=== PATIENT | male | born 1980 | race Caucasian/White ===

== ENCOUNTER 2019-05-14 00:14 | Emergency (ER) | payer MEDICAID ==
[~2019-05-14] VITALS: Ht 170.2 cm; Wt 72.0 kg
[2019-05-14] MEDS ORDERED: KETOROLAC 30MG/ML VIAL IV ONE (02:15)
[2019-05-14] MEDS ORDERED: SODIUM CHLORIDE 0.9% 1,000 ML IV ONE (02:15)
[2019-05-14 05:21] VITALS: BP 117/72
== END 2019-05-14 06:15 | disposition home or self-care (01) ==
LOC: ER 00:14
DX: S00.532A Contusion of oral cavity, initial encounter (principal); F10.129 Alcohol abuse with intoxication, unspecified; Y08.89XA Assault by other specified means, initial encounter; Y93.89 Activity, other specified; Y92.89 Other specified places as the place of occurrence of the external cause; Y99.8 Other external cause status; Y90.8 Blood alcohol level of 240 mg/100 ml or more
CPT/HCPCS: 36415; 71045; 80320; 96374; 99284; J1885; J7030; Z7610; G0480

== ENCOUNTER 2019-05-16 01:10 | Emergency (ER) | payer MEDICAID ==
[~2019-05-16] VITALS: Ht 165.1 cm; Wt 71.0 kg
[2019-05-16] MEDS ORDERED: SODIUM CHLORIDE 0.9% 1,000 ML IV ONE (04:42)
[2019-05-16 05:49] LABS: BASOPHILS % 1.4 % (0.0-2.0); EOSINOPHILS % 1.7 % (0.0-5.0); HEMOGLOBIN. 13.5 g/dL (14.0-18.0); LYMPHOCYTES % 46.1 % (20.0-50.0); MEAN CORPUSCULAR HEMOGLOBIN 34.1 pg (28.0-32.0); MEAN CORPUSCULAR VOLUME 101.2 fL (80.0-94.0); MEAN PLATELET VOLUME 8.8 fl (7.4-10.4); MONOCYTES % 6.5 % (2.0-8.0); NEUTROPHILS % 44.3 % (40.0-76.0); PLATELET 126 x1000/uL (130-400); RED BLOOD CELL COUNT 3.95 mill/uL (4.7-6.1); RED CELL DISTRIBUTION WIDTH 17.1 % (11.6-14.6)
[2019-05-16 06:12] LABS: CHLORIDE 109 mEq/L (98-107)
[2019-05-16 06:28] LABS: ETHANOL BLOOD 343 mg/dL
[2019-05-16 09:00] VITALS: BP 133/84
== END 2019-05-16 09:31 | disposition home or self-care (01) ==
LOC: ER 01:10
DX: F10.229 Alcohol dependence with intoxication, unspecified (principal); Y90.8 Blood alcohol level of 240 mg/100 ml or more
CPT/HCPCS: 36415; 80048; 80320; 85025; 99283; J7030; G0480